=== PATIENT | female | born 1985 | race Caucasian/White ===

== ENCOUNTER 2018-05-29 13:34 | Observation (INO) | payer MEDICARE, OTHER ==
[2018-05-29 13:41] VITALS: BMI 28.8
[2018-05-29] MEDS ORDERED: ONDANSETRON 4 MG/2 ML VIAL IVPUSH ONE (13:42)
--- NOTE | 2018-05-29 13:42 | PDOC ---
Rapid Medical Evaluation Chief Complaint: Pain Time Seen by Provider: 05/29/18 13:37 Medical Evaluation: Allergies Allergy/AdvReac Type Severity Reaction Status Date / Time codeine Allergy Hives Verified 01/18/16 12:18 05/29/18 13:38 Pt presents to the ED to be admitted for a D&C by Dr. Ashleigh Pearl. Pt presents with abdominal pains to the lower right for two weeks. Told she had a missed . Last ate at 9am this morning. Exam: ambulatory, NAD Orders: Labs, IV insert, Type and screen, US Pt to proceed to ED for further evaluation Discharge Disposition - Diagnosis Abdominal pain - Referrals - Patient Instructions - Post Discharge Activity
--- NOTE | 2018-05-29 14:26 | PDOC ---
History of Present Illness - General Chief Complaint: Pain Stated Complaint: ABD Time Seen by Provider: 05/29/18 13:37 History Source: Patient - History of Present Illness Timing/Duration: reports: constant Past History - Past Medical History Allergies/Adverse Reactions: Allergies Allergy/AdvReac Type Severity Reaction Status Date / Time codeine Allergy Hives Verified 01/18/16 12:18 Home Medications: Ambulatory Orders Ibuprofen [Motrin -] 800 mg PO Q6H #30 tablet 01/18/16 - Suicide/Smoking/Psychosocial Hx Smoking History: Never smoked Hx Alcohol Use: No Drug/Substance Use Hx: No Substance Use Type: None Review of Systems - Review of Systems Constitutional: No: Chills, Fever ABD/GI: Yes: Abdominal cramping. No: Nausea, Vomiting : No: Dysuria *Physical Exam - Vital Signs Last Vital Signs Temp Pulse Resp BP Pulse Ox 98.3 F 84 20 128/54 L 98 05/29/18 13:37 05/29/18 13:37 05/29/18 13:37 05/29/18 13:37 05/29/18 13:37 - Physical Exam General Appearance: Yes: Appropriately Dressed. No: Apparent Distress HEENT: positive: Normal Voice Neck: positive: Supple Respiratory/Chest: negative: Respiratory Distress Gastrointestinal/Abdominal: positive: Tender (minimal ttp to lower abd diffusely ), Soft Integumentary: positive: Dry, Warm Neurologic: positive: Fully Oriented, Alert, Normal Mood/Affect Moderate Sedation - Procedure Monitoring Vital Signs: Procedure Monitoring Vital Signs Temperature 98.3 F 05/29/18 13:37 Pulse Rate 84 05/29/18 13:37 Respiratory Rate 20 05/29/18 13:37 Blood Pressure 128/54 L 05/29/18 13:37 O2 Sat by Pulse Oximetry (%) 98 05/29/18 13:37 ED Treatment Course - LABORATORY CBC & Chemistry Diagram: 05/29/18 14:48 05/29/18 14:48 Medical Decision Making - Medical Decision Making 05/29/18 14:24 33-year-old female, h/o PCOS, , s/p elective AB 2 weeks ago and now presents with continued abdominal cramping and vaginal bleed. States her OB, sent her to ED for D&C today. Patient states 2 weeks ago when she was about 7 weeks , she developed vaginal bleeding. States she was referred to [facility] for a pill that begins with "M" per patient, took 1 tablet initially and then 4 more pills. States she continued to have bleeding that seems to be getting worse with large clots. Also reports severe lower abdominal cramping. No nausea, vomiting, fever, chills or dysuria. See exam D&C for incomplete AB Stable w/ unremarkable exam -pre-op labs -US -OB c/s 05/29/18 14:53 Case discussed with pt's OB, Dr. Ashleigh Nelson ([phone]) who states she will be taking patient to the OR at 6:30 PM today and requesting that I called the OR to make them aware. Of note, patient NPO since 7 AM today 05/29/18 15:55 OR made aware of procedure. Pt admitted to OB *DC/Admit/Observation/Transfer Diagnosis at time of Disposition: Vaginal bleeding, Incomplete - Discharge Dispostion Condition at time of disposition: Fair Decision to Admit order: Yes - Referrals - Patient Instructions - Post Discharge Activity
[2018-05-29] MEDS ORDERED: SODIUM CHLORIDE 1,000 ML IV STA (14:56)
--- NOTE | 2018-05-29 15:03 | PDOC ---
*Physical Exam - Vital Signs Last Vital Signs Temp Pulse Resp BP Pulse Ox 98.3 F 84 20 128/54 L 98 05/29/18 13:37 05/29/18 13:37 05/29/18 13:37 05/29/18 13:37 05/29/18 13:37 Medical Decision Making - Medical Decision Making 05/29/18 15:02 33-year-old female sent in by [facility] for DNC in the setting of retained products of conception after voluntary termination of within the last 2-3 weeks. Preop workup, endovaginal ultrasound Admit for OR *DC/Admit/Observation/Transfer Diagnosis at time of Disposition: Vaginal bleeding, Incomplete - Discharge Dispostion Condition at time of disposition: Fair - Referrals - Patient Instructions - Post Discharge Activity
[2018-05-29 15:45] LABS: BASO % 0.3 % (0-2.0); EOS % 0.9 % (0-4.5); HEMATOCRIT 33.8 % (32.4-45.2); HEMOGLOBIN 11.4 GM/dL (10.7-15.3); LYMPH % 19.4 % (8-40); MCH 29.4 pg (25.7-33.7); MCHC 33.8 g/dl (32.0-36.0); MEAN CELL VOLUME 86.9 fl (80-96); MEAN PLT VOLUME 9.3 fl (7.5-11.1); MONO % 5.1 % (3.8-10.2); NEUT % 74.3 % (42.8-82.8); PLATELET COUNT 264 K/MM3 (134-434); RBC 3.89 M/mm3 (3.60-5.2); RDW 14.6 % (11.6-15.6); WHITE BLOOD COUNT 11.1 K/mm3 (4.0-10.0)
[2018-05-29 15:49] LABS: INR 1.23 (0.83-1.09); PROTHROMBIN TIME (PATIENT) 14.5 SEC (9.7-13.0)
[2018-05-29] MEDS ORDERED: ONDANSETRON 4 MG/2 ML VIAL ONE (16:11)
[2018-05-29 16:16] LABS: ALBUMIN 3.4 g/dl (3.4-5.0); ALK PHOS 52 U/L (45-117); ANION GAP 9 MMOL/L (8-16); BILIRUBIN,TOTAL 0.2 mg/dL (0.2-1); BLOOD UREA NITROGEN 11 mg/dL (7-18); CALCIUM 8.8 mg/dL (8.5-10.1); CHLORIDE 107 mmol/L (98-107); CO2 26 mmol/L (21-32); CREATININE 0.5 mg/dL (0.55-1.3); GLUCOSE,RANDOM 84 mg/dL (74-106); SGOT/AST 9 U/L (15-37); SGPT/ALT 22 U/L (13-61); SODIUM 142 mmol/L (136-145); TOT PROT 6.8 g/dl (6.4-8.2)
[2018-05-29 16:18] LABS: URINE APPEARANCE SLCLOUDY; URINE BILIRUBIN NEGATIVE (<2.0 mg/dL); URINE COLOR YELLOW; URINE GLUCOSE (UA) NEGATIVE (NEGATIVE); URINE KETONE NEGATIVE (NEGATIVE); URINE LEUK ESTERASE NEGATIVE (NEGATIVE); URINE NITRITE NEGATIVE (NEGATIVE); URINE PROTEIN NEGATIVE (NEGATIVE)
[2018-05-29 16:44] LABS: EPI CELLS RARE /HPF (FEW); URINE HYALINE CAST 2 /lpf; URINE MUCUS MANY
[2018-05-29] MEDS ORDERED: morphine CARPU-JECT 2 MG/1 ML DISP.SYRIN IVPUSH ONE (17:18)
[2018-05-29] MEDS ORDERED: MORPHINE SULFATE 2 MG/ML VIAL ONE (17:24)
[2018-05-29] MEDS ORDERED: oxyCODONE HCL 5 MG TABLET PO PRN ×3 (19:50→21:33)
[2018-05-29] MEDS ORDERED: LACTATED RINGERS SOLUTION 1,000 ML IV SCH (20:00)
[2018-05-29] MEDS ORDERED: PROPOFOL 20 ML ONE ×2 (20:42)
[2018-05-29] MEDS ORDERED: LIDOCAINE HCL/PF 2% SDV 5ML VIAL ONE (20:43)
[2018-05-29] MEDS ORDERED: DEXAMETHASONE SOD PHOSPHATE 4 MG/1 ML VIAL ONE (20:43)
--- NOTE | 2018-05-29 20:49 | HP ---
Admitting History and Physical - Primary Care Physician PCP: Ashleigh Minor - Admission Chief Complaint: 33yo P1 s/p Mefeprestone on 05/13/18 and Misoprostol on 05/15/18 she continued to have pelvic pain and on todays sonogram still has retained products of conseption History Source: Patient Limitations to Obtaining History: No Limitations - Past Medical History Reproductive: Yes: Polycystic Ovary Syndrome ...LMP: 03/13/18 ...: Yes (MISSED AB) ...: 2 Infectious Disease: Yes: Herpes Zoster - Past Surgical History Past Surgical History: Yes: None - Smoking History Smoking history: Never smoked - Alcohol/Substance Use Hx Alcohol Use: No History of Substance Use: reports: Marijuana - Social History History of Recent Travel: No Home Medications - Allergies Allergies/Adverse Reactions: Allergies Allergy/AdvReac Type Severity Reaction Status Date / Time codeine Allergy Hives Verified 01/18/16 12:18 - Home Medications Home Medications: Ambulatory Orders NK [No Known Home Medication] 05/29/18 Family Disease History - Family Disease History Family History: Denies Review of Systems - Review of Systems Constitutional: reports: No Symptoms Eyes: reports: No Symptoms HENT: reports: No Symptoms Neck: reports: No Symptoms Cardiovascular: reports: No Symptoms Respiratory: reports: No Symptoms Gastrointestinal: reports: No Symptoms Genitourinary: reports: Vaginal Bleeding Breasts: reports: No Symptoms Reported Musculoskeletal: reports: No Symptoms Integumentary: reports: No Symptoms Neurological: reports: No Symptoms Endocrine: reports: No Symptoms Hematology/Lymphatic: reports: No Symptoms Psychiatric: reports: No Symptoms Physical Examination Vital Signs: Vital Signs Temperature 98.3 F 05/29/18 13:37 Pulse Rate 84 05/29/18 13:37 Respiratory Rate 20 05/29/18 13:37 Blood Pressure 128/54 L 05/29/18 13:37 O2 Sat by Pulse Oximetry (%) 98 05/29/18 13:37 Constitutional: Yes: Well Nourished, No Distress, Calm Eyes: Yes: WNL, Conjunctiva Clear, EOM Intact HENT: Yes: WNL, Atraumatic, Normocephalic Neck: Yes: WNL, Supple, Trachea Midline Cardiovascular: Yes: WNL, Regular Rate and Rhythm Respiratory: Yes: WNL, Regular, CTA Bilaterally Gastrointestinal: Yes: WNL, Normal Bowel Sounds, Soft Renal/: Yes: , Vaginal Bleeding (open os) Breast(s): Yes: WNL Musculoskeletal: Yes: WNL Extremities: Yes: WNL Edema: No Integumentary: Yes: WNL Neurological: Yes: WNL, Alert, Oriented ...Motor Strength: WNL Psychiatric: Yes: WNL, Alert, Oriented Labs: CBC, BMP 05/29/18 14:48 05/29/18 14:48 Imaging - Results Ultrasound: Report Reviewed (retained POC) Assessment/Plan 33yo P1 s/p medical TOP with retained POC, Incomplete Ab Admit for Suction and curettage Procedure explained, concent signed instructed NPV post procedure, follow HCG IVF, NPO Doxoxycycline/Flagyl Anesthesia aware
[2018-05-29] MEDS ORDERED: GLYCOPYRROLATE 0.2 MG/1 ML VIAL ONE (21:09)
[2018-05-29] MEDS ORDERED: KETOROLAC TROMETHAMINE 30 MG/1 ML VIAL ONE ×2 (21:13→22:31)
[2018-05-29] MEDS ORDERED: IBUPROFEN 600 MG TABLET (FP) PO PRN (21:33)
[2018-05-29] MEDS ORDERED: ONDANSETRON 4 MG/2 ML VIAL IVPUSH PRN (21:33)
[2018-05-29] MEDS ORDERED: IBUPROFEN 800 MG/8 ML IJ IVPB PRN (21:33)
[2018-05-29] MEDS ORDERED: ACETAMINOPHEN INJECTION 100 ML IVPB ONE (21:34)
[2018-05-29] MEDS ORDERED: ACETAMINOPHEN 1000 MG/100 ML VIAL (NON FORMULARY) IVPB ONE (21:37)
[2018-05-29] MEDS ORDERED: ELECTROLYTE-148 SOLN 1,000 ML IV SCH (21:45)
--- NOTE | 2018-05-29 21:52 | OP ---
Operative Note - Note: Operative Date: 05/29/18 Pre-Operative Diagnosis: 33yo P1 with incomplete AB, following medical TOP Operation: Suction curettage Findings: Products of conception Post-Operative Diagnosis: Same as Pre-op Surgeon: Ashleigh Minor Anesthesiologist/PROFESSIONAL SERVICES MANAGER: Loly Rg Anesthesia: MAC Specimens Removed: Products of conseption Estimated Blood Loss (mls): 50 Drains, Volume Out (mls): 0 Fluid Volume Replaced (mls): 200 Operative Report Dictated: Yes
[2018-05-29] MEDS ORDERED: oxyCODONE HCL 5 MG TABLET ONE (22:25)
[2018-05-29] MEDS ORDERED: DOXYCYCLINE INJECTION 100 MG in DEXTROSE 5%-WATER - 100 ML IVPB ONE (22:28)
[2018-05-29] MEDS ORDERED: KETOROLAC TROMETHAMINE 30 MG/1 ML VIAL IM ONE (22:30)
[2018-05-29 23:32] VITALS: BP 106/55; PULSE 59; TEMP 98.4
--- NOTE | 2018-05-30 08:33 | OP ---
DATE OF OPERATION: 05/29/2018 PREOPERATIVE DIAGNOSIS: A 33-year-old para 1 with incomplete following medical termination of . PROCEDURE PERFORMED: Suction curettage. FINDINGS: Products of conception. POSTOPERATIVE DIAGNOSIS: A 33-year-old para 1 with incomplete following medical termination of . SURGEON: Ashleigh Minor MD ANESTHESIOLOGIST: Loly Rg M.D. ANESTHESIA: MAC. SPECIMEN REMOVED: Products of conception. DESCRIPTION OF PROCEDURE: After assuring informed consent, the patient was brought to the operating room, where she was placed in the dorsal lithotomy position. The perineum and vagina were prepped and draped in sterile fashion. The Stephenson retractor was placed into the patient's vagina. The anterior cervical lip was articulated with a single-tooth tenaculum. The cervix was found to be dilated and accommodated a 7-gauge plastic curette. Suction initiated and visible products of conception were expressed via suction from the uterus until the uterus contracted. The emptiness of the uterus was assured via gentle sharp curettage with a gauge 3 curette. Subsequently, once the uterus contracted, all instruments were removed from the cervix and vagina. The patient was placed into the supine position. Instrument and sponge counts were correct x2. Estimated blood loss was 50 mL. The patient received 200 mL of IV fluids. The patient was brought to the recovery room in stable condition. Haley ALMANZA/[id number]
--- NOTE | 2018-05-31 10:37 | PATH ---
Surgical Pathology Report Patient Name: SAKINA MARIE Med. Rec. #: [id number] /Age/Gender: 1985 (Age: 33) / F Account: [id number] Location: EMERGENCY ROOM Taken: 05/29/2018 Received: 05/30/2018 Reported: 05/31/2018 Physicians: Ashleigh Minor M.D. PHYSICIAN EMERGENCY DEPT Specimen(s) Received PRODUCTS OF CONCEPTION Clinical History Missed , abdominal pain Final Diagnosis PRODUCTS OF CONCEPTION, SUCTION DILATION AND CURETTAGE: IMMATURE CHORIONIC VILLI AND DECIDUA CONSISTENT WITH PRODUCTS OF CONCEPTION. Electronically Signed Marianne Stone M.D. Gross Description Received in formalin, labeled "products of conception," is a 7 x 7 x 2 cm. aggregate of laurent-red soft tissue fragments. Tissue suggestive of villous tissue is identified. No somatic tissue is identified. A paper sales representative portion is submitted in 2 cassettes. MLSZ/05/30/2018 sanml/05/30/2018
== END 2018-05-30 00:21 | disposition home or self-care (01) ==
LOC: JER 13:34 → JERBED 16:09
PROVIDERS: ADMIT Obstetrics & Gynecology; ATTEND Obstetrics & Gynecology
PROC: 10D17ZZ Extraction of Products of Conception, Retained, Via Natural or Artificial Opening (ICD-10-PCS; principal; 2018-05-29 19:00)
DX: O03.4 Incomplete spontaneous abortion without complication (principal); N93.9 Abnormal uterine and vaginal bleeding, unspecified
CPT/HCPCS: 36415; 76817-TC; 80053; 81003; 81015; 84702; 85025; 85610; 86850; 86900; 86901; 88305-TC; 94760; 99284-25; G0378; J0131; J7030

== ENCOUNTER 2019-05-03 12:22 | Emergency (ER) | payer OTHER ==
[2019-05-03 12:31] VITALS: BP 145/61; PULSE 75; TEMP 98.5; BMI 27.2
--- NOTE | 2019-05-03 12:45 | PDOC ---
History of Present Illness - General Chief Complaint: Cold Symptoms Stated Complaint: COLD SYMPTOMS Time Seen by Provider: 05/03/19 12:33 History Source: Patient - History of Present Illness Initial Comments: 05/03/19 13:22 34-year-old female complaining of nasal congestion, cough and throat pain for the last 3 days with fever. Patient here being seen with daughter with similar symptoms. Denies nausea, vomiting, diarrhea, abdominal pain, urinary symptoms, chest pain. No past medical history Past History - Past Medical History Allergies/Adverse Reactions: Allergies Allergy/AdvReac Type Severity Reaction Status Date / Time codeine Allergy Hives Verified 05/03/19 12:30 Home Medications: Ambulatory Orders Doxycycline Hyclate 100 mg PO BID 3 Days #6 capsule 05/29/18 COPD: No - Immunization History Immunization Up to Date: Yes - Psycho Social/Smoking Cessation Hx Smoking History: Never smoked Hx Alcohol Use: No Drug/Substance Use Hx: No Substance Use Type: None *Physical Exam - Vital Signs Last Vital Signs Temp Pulse Resp BP Pulse Ox 98.5 F 75 18 145/61 98 05/03/19 12:27 05/03/19 12:27 05/03/19 12:27 05/03/19 12:27 05/03/19 12:27 - Physical Exam General Appearance: Yes: Appropriately Dressed HEENT: positive: Pharyngeal Erythema, Nasal Congestion. negative: TM Erythema Respiratory/Chest: positive: Lungs Clear, Normal Breath Sounds Cardiovascular: positive: Regular Rhythm, Regular Rate Gastrointestinal/Abdominal: positive: Normal Bowel Sounds, Soft. negative: Tender Extremity: positive: Normal Capillary Refill, Normal Inspection, Normal Range of Motion Integumentary: positive: Normal Color, Dry, Warm Neurologic: positive: Fully Oriented, Alert ED Progress Note - Progress Note Progress Note: 05/03/19 13:24 A: flu like illness; pharyngitis P: strep neg throat culture pending pcp follow up 05/03/19 13:29 Discharge - Discharge Information Problems reviewed: Yes Clinical Impression/Diagnosis: Flu-like symptoms Pharyngitis Qualifiers: Pharyngitis/tonsillitis etiology: unspecified etiology Qualified Code(s): J02.9 - Acute pharyngitis, unspecified Disposition: HOME - Follow up/Referral - Patient Discharge Instructions Patient Printed Discharge Instructions: Sore Throat Additional Instructions: Drink plenty of fluids Gargle with warm salty water Drink warm liquids take tylenol every 4 hours as needed for pain or fever Take ibuprofen every 6 hours as needed for pain or fever Follow with you doctor as soon as possible - Post Discharge Activity Work/Back to School Note: Back to Work
[2019-05-03] MEDS ORDERED: IBUPROFEN 600 MG TABLET (FP) PO ONE ×2 (12:46→13:00)
== END 2019-05-03 13:45 | disposition home or self-care (01) ==
LOC: JERFT 12:22
DX: J11.1 Influenza due to unidentified influenza virus with other respiratory manifestations (principal); Z88.5 Allergy status to narcotic agent
CPT/HCPCS: 87070; 87880; 99281-25

== ENCOUNTER 2022-02-04 19:29 | Emergency (ER) | payer OTHER ==
[2022-02-04 19:36] VITALS: BP 127/85; PULSE 63; RESP 18; TEMP 97.6; BMI 31.5
[2022-02-04 22:11] LABS: BASO % 0.6 % (0-2.0); EOS % 2.3 % (0-4.5); HEMATOCRIT 37.6 % (32.4-45.2); HEMOGLOBIN 12.5 GM/dL (10.7-15.3); LYMPH % 37.7 % (8-40); MCH 27.3 pg (25.7-33.7); MCHC 33.2 g/dl (32.0-36.0); MEAN CELL VOLUME 82.4 fl (80-96); MEAN PLT VOLUME 9.4 fl (7.5-11.1); MONO % 5.6 % (3.8-10.2); NEUT % 53.8 % (42.8-82.8); PLATELET COUNT 246 10^3/uL (134-434); RBC 4.57 M/mm3 (3.60-5.2); RDW 14.1 % (11.6-15.6); WHITE BLOOD COUNT 8.4 K/mm3 (4.0-10.0)
[2022-02-04 22:38] LABS: ALBUMIN 3.6 g/dl (3.4-5.0); BLOOD UREA NITROGEN 10.3 mg/dL (7-18); CALCIUM 9.2 mg/dL (8.5-10.1); MAGNESIUM 2.2 mg/dL (1.8-2.4)
[2022-02-04 22:41] LABS: CREATININE 0.6 mg/dL (0.55-1.3)
[2022-02-04 22:43] LABS: BILIRUBIN,TOTAL 0.3 mg/dL (0.2-1); TOT PROT 7.3 g/dl (6.4-8.2)
== END 2022-02-04 23:06 | disposition home or self-care (01) ==
LOC: JERFT 19:29
DX: I70.213 Atherosclerosis of native arteries of extremities with intermittent claudication, bilateral legs (principal)
CPT/HCPCS: 36415; 80053; 83735; 85025; 93970-TC; 99284-25